=== PATIENT | female | born 1995 | race Caucasian/White ===

== ENCOUNTER 2019-10-08 14:01 | Inpatient (IN) | payer OTHER ==
[~2019-10-08] VITALS: Ht 154.9 cm; Wt 57.2 kg
[~2019-10-08 14:01] MED LIST: PREN-385 PO
[2019-10-08] MEDS ORDERED: MAG SULF 2000 MG/WATER PREMIX 100 ML IV SCH (15:00)
[2019-10-08 15:07] LABS: BASOPHILS % (AUTO) 0.4 % (0.0-2.0); EOSINOPHILS # (AUTO) 0.2 K/uL (0-0.4); EOSINOPHILS % (AUTO) 1.5 % (0.0-4.0); HEMATOCRIT 35.2 % (36-48); HEMOGLOBIN 12.1 g/dL (12.0-16.0); LYMPHOCYTES # (AUTO) 1.5 K/uL (2.5-16.5); LYMPHOCYTES % (AUTO) 13.5 % (20.5-51.1); MEAN CORPUSCULAR HEMOGLOBIN 31 pg (27-31); MEAN CORPUSCULAR HGB CONC 34 g/dL (33-37); MEAN CORPUSCULAR VOLUME 90.5 fL (80-94); MONOCYTES # (AUTO) 0.9 K/uL (0.8-1.0); MONOCYTES % (AUTO) 8.2 % (1.7-9.3); NEUTROPHILS # (AUTO) 8.2 K/uL (1.8-7.7); NEUTROPHILS % (AUTO) 76.4 % (42.2-75.2); PLATELET COUNT (AUTO) 236 K/uL (140-450); RED BLOOD CELL COUNT(AUTO) 3.89 MIL/uL (4.20-5.40); RED CELL DISTRIBUTION WIDTH 12.5 % (11.6-13.7); WHITE BLOOD COUNT (AUTO) 10.7 K/uL (4.8-10.8)
[2019-10-08] MEDS: BETAMETH ACET/BETAMETH NA PH 30 MG/5 ML VIAL IM PRN (15:27)
[2019-10-08 15:28] LABS: ALBUMIN 2.5 g/dL (3.4-5.0); ANION GAP 12.8 (8-16); CARBON DIOXIDE 25.4 mmol/L (21-32); CREATININE 0.9 mg/dL (0.6-1.3); POTASSIUM 4.2 mmol/L (3.5-5.1); TOTAL BILIRUBIN 0.5 mg/dL (0.0-1.0)
[2019-10-08] MEDS ORDERED: MAG SULF 20 GM/H2O PREMIX DRIP 500 ML IV ONE (15:44)
[2019-10-08 19:02] VITALS: BP 102/61
[2019-10-08 21:08] LABS: APPEARANCE,URINE CLEAR (CLEAR); BILIRUBIN,URINE NEGATIVE (NEGATIVE); BLOOD, URINE 3+ (NEGATIVE); COLOR,URINE YELLOW (YELLOW); LEUKOCYTE ESTERASE ,URINE NEGATIVE (NEGATIVE); NITRITE, URINE NEGATIVE (NEGATIVE); UGLUCOSE NEGATIVE (NEGATIVE)
[2019-10-08] MEDS ORDERED: ONDANSETRON 4 MG/2 ML VIAL IVP PRN (21:35)
[2019-10-08 21:41] LABS: RBC,URINE TOO NUMEROUS TO COUN /HPF (0-5); WBC,URINE NONE SEEN /HPF (0-5)
[2019-10-08] MEDS ORDERED: ALBUTEROL 0.083% 2.5 MG/3 ML NEBU INH PRN (21:45)
[2019-10-09] MEDS: MAG SULF 20 GM/H2O PREMIX DRIP 500 ML IV SCH (02:20)
--- NOTE | 2019-10-09 08:22 | NUR ---
PATIENT HAS BEEN SCREENED AND CATEGORIZED LOW NUTRITION RISK. PATIENT WILL BE SEEN WITHIN 7 DAYS OF ADMISSION. 10/15/[address]
[2019-10-09] MEDS: LACTATED RINGERS 1,000 ML IV SCH (11:45)
[2019-10-09] MEDS ORDERED: MAG SULF 20 GM/H2O PREMIX DRIP 500 ML IV SCH (12:15)
[2019-10-09] MEDS: BETAMETH ACET/BETAMETH NA PH 30 MG/5 ML VIAL IM PRN (15:32)
[2019-10-10] MEDS: LACTATED RINGERS 1,000 ML IV SCH (10:07)
[2019-10-10] MEDS: MAG SULF 20 GM/H2O PREMIX DRIP 500 ML IV SCH (12:14)
[2019-10-10] MEDS ORDERED: INFLUENZA VACCINE QUAD 0.5 ML SYR IMVAC PRN (20:30)
[2019-10-10] MEDS ORDERED: INFLUENZA VACCINE QUAD 0.5 ML SYR IMVAC ONE (20:35)
== END 2019-10-10 21:00 | disposition home or self-care (01) | DRG 563 ==
LOC: MLD 14:01 → OBSVTOIN 14:30
PROVIDERS: ADMIT Obstetrics & Gynecology; ATTEND Obstetrics & Gynecology
PROC: 3E0234Z Introduction of Serum, Toxoid and Vaccine into Muscle, Percutaneous Approach (ICD-10-PCS; principal; 2019-10-10)
PROC: 3E02340 Introduction of Influenza Vaccine into Muscle, Percutaneous Approach (ICD-10-PCS; 2019-10-10)
DX: O60.03 Preterm labor without delivery, third trimester (principal); Z23 Encounter for immunization; Z3A.32 32 weeks gestation of pregnancy
CPT/HCPCS: 36415; 76815; 76817; 80053; 81001; 83735; 85025; 86886; 86900; 86901; 90715; 94640; G0378; J0702; J2405; J3475; J7120; J7613; Q0092